=== PATIENT | male | born 1995 | race Caucasian/White ===

== ENCOUNTER 2018-01-29 11:41 | Emergency (ER) | payer OTHER ==
[~2018-01-29] VITALS: Ht 190.5 cm; Wt 131.5 kg
[2018-01-29 11:41] VITALS: BP_SYST 147
[2018-01-29] MEDS ORDERED: KETOROLAC TROMETHAMINE 60 MG/2 ML VIAL IM ONE (14:00)
[2018-01-29] MEDS ORDERED: HYDROcodone/ACETAMIN 5-325 MG TAB (NORCO/ VICODIN) PO ONE (14:45)
[2018-01-29 15:34] VITALS: BP_SYST 121
== END 2018-01-29 15:35 | disposition home or self-care (01) ==
LOC: SED 11:41
DX: G44.209 Tension-type headache, unspecified, not intractable (principal); R03.0 Elevated blood-pressure reading, without diagnosis of hypertension
CPT/HCPCS: 96372; 99283; J1885